=== PATIENT | female | born 1950 | race African-American/Black ===

== ENCOUNTER 2023-05-01 07:57 | Emergency (ER) | payer MEDICARE, MEDICAID ==
[~2023-05-01] VITALS: Ht 170.2 cm; Wt 75.0 kg
[2023-05-01 07:59] VITALS: O2SAT 99
[2023-05-01] MEDS ORDERED: ACETAMINOPHEN WITH CODEINE 300/30MG TABLET PO ONE (08:00)
[2023-05-01 09:10] VITALS: BP 155/83; PULSE 64; RESP 16; TEMP 98.6
== END 2023-05-01 11:19 | disposition home or self-care (01) ==
LOC: ER 07:57
DX: M19.012 Primary osteoarthritis, left shoulder (principal); M19.011 Primary osteoarthritis, right shoulder
CPT/HCPCS: 99283